=== PATIENT | male | born 1975 | race Caucasian/White ===

== ENCOUNTER 2016-08-05 16:13 | Emergency (ER) ==
[2016-08-05] MEDS ORDERED: HEPARIN IV ONE (16:27)
[2016-08-05] MEDS ORDERED: ASPIRIN PO STA (16:27)
[2016-08-05] MEDS ORDERED: ZOFRAN ONE (16:33)
[2016-08-05] MEDS ORDERED: ZOFRAN IV ONE (16:33)
[2016-08-05] MEDS ORDERED: MORPHINE IV ONE (16:33)
[2016-08-05] MEDS ORDERED: MORPHINE ONE (16:33)
--- NOTE | 2016-08-05 16:33 | PROVIDER DOCUMENTATION ---
HPI-Chest Pain - General Chief Complaint: Heart Alert Stated Complaint: CP Time Seen by Provider: 08/05/16 16:23 Source: patient Allergies/Adverse Reactions: Patient Allergies Allergy/AdvReac Type Severity Reaction Status Date / Time No Known Allergies Allergy Verified 03/27/16 08:10 Home Medications: Home Medication List Medication Instructions Recorded Confirmed Last Taken Type Aspirin [Aspirin EC] 81 mg PO DAILY 03/27/16 03/27/16 03/27/16 06:30 History CAPTOpril [Capoten] 25 mg PO DAILY 03/27/16 03/27/16 03/27/16 06:30 History Gemfibrozil [Lopid] 600 mg PO BID 03/27/16 03/27/16 03/27/16 06:30 History Hydrocodone/Acetaminophen [[place] 1 each PO 2-4XDAY PRN PRN #20 03/27/16 Unknown Rx 10-325 Tablet] tablet Ibuprofen 600 mg PO TID PRN PRN #20 tablet 03/27/16 Unknown Rx Metoprolol [Lopressor] 50 mg PO BID 03/27/16 03/27/16 03/27/16 06:30 History Omeprazole [Prilosec] 40 mg PO DAILY 03/27/16 03/27/16 03/27/16 06:30 History - History of Present Illness-CP Nature of Presenting Problem: patient is a 41 y/o M that presents to the ER with substernal chest pain. patient symptoms began at 1130am with just dizziness, chest pain then came. He reports similar pain to his previous DC , 7 years ago in [place] in which he had cardiac stents. patient reports some nausea. Location: reports: substernal Chest Pain Radiation: reports: no radiation Quality of Pain: reports: tightness Severity in ED: moderate Onset/Duration: abrupt, this morning (1130) Timing: still present, constant Context/Activities at Onset: reports: none Modifying Factors: improves with: nothing. worse with: other medication Associated Symptoms: reports: dizziness, nausea, shortness of breath. denies: back pain, fever/chills, vomiting Nitro Today/Relief: 0.4 mg x 3, provided at home, no relief Aspirin Treatment Today: 325 mg x 1, provided by ED Prior Chest Pain/Cardiac Workup: reports: heart attack Similar Symptoms Previously?: Yes Recently Seen Here or By Another Healthcare Provider: No Review of Systems - Adult - REVIEW OF SYSTEMS - ADULT Constitutional: denies: chills, fever Eyes: reports: no symptoms reported Ears, Nose, Mouth & Throat: reports: no symptoms reported Cardiovascular: reports: chest pain. denies: palpitations, syncope Respiratory: reports: shortness of breath. denies: cough, wheezing Gastrointestinal: reports: nausea. denies: abdominal pain, diarrhea, vomiting Genitourinary: reports: no symptoms reported Musculoskeletal: reports: no symptoms reported Integumentary: reports: no symptoms reported Neurological: reports: dizziness/vertigo. denies: headache/migraines, seizure, syncope Psychiatric: reports: no symptoms reported Endocrine: reports: no symptoms reported Hematologic/Lymphatic: reports: no symptoms reported Allergic/Immunologic: reports: no symptoms reported All Other Systems: Reviewed and Negative Past History - Adult - PAST MEDICAL HISTORY-ADULT Review of Records: reports: Old Records Reviewed, Nursing Assessment Review, Medications Reviewed Cardiovascular: reports: CAD, HTN, hyperlipidemia, DC - PRIOR SURGERIES/PROCEDURES Surgical/Procedure History: reports: cardiac stent - IMMUNIZATION STATUS Childhood Immunizations: See Nurse Assessment Flu Vaccine: See Nurse Assessment - FAMILY HISTORY Family History: reviewed, not pertinent - SOCIAL HISTORY Smoking: cigarettes, less than 1 pack/day Alcohol Use Frequency: occasionally Living Situation: family Physical Exam-General - PHYSICAL EXAM-ADULT Initial Vital Signs Reviewed: Yes - CONSTITUTIONAL General Appearance: alert, mild distress, moderate distress, anxious, other ( ill appearing) - EYES Eyes: PERRL/EOMI, pink conjunctivae - HEAD, EARS, NOSE, MOUTH & THROAT HENMT: normocephalic/atraumatic, moist mucous membranes, normal ENT inspection - NECK Neck: full range of motion, normal inspection. negative: lymphadenopathy - RESPIRATORY Respiratory: lungs clear, normal breath sounds, no respiratory distress, no accessory muscle use - CARDIOVASCULAR Cardiovascular: regular rate, rhythm, no edema, no murmur - GASTROINTESTINAL (ABDOMEN) Abdominal Exam: normal bowel sounds, non tender, soft - MUSCULOSKELETAL Extremity: normal range of motion, normal inspection, no pedal edema - SKIN Integumentary: pallor. negative: diaphoresis - NEUROLOGIC Neurologic: grossly normal, no motor/sensory deficits - PSYCHIATRIC Psych/Mental Status: normal thought content, normal thought process, oriented x 3, anxious Progress - PLAN OF CARE/RESULTS Progress/Plan/Lab Results: No Known Allergies Allergy (Verified 03/27/16 08:10) Aspirin [Aspirin EC] 81 mg PO DAILY 03/27/16 CAPTOpril [Capoten] 25 mg PO DAILY 03/27/16 Gemfibrozil [Lopid] 600 mg PO BID 03/27/16 Hydrocodone/Acetaminophen [[place]ahoma 10-325 Tablet] 1 each PO 2-4XDAY PRN PRN #20 tablet 03/27/16 Ibuprofen 600 mg PO TID PRN PRN #20 tablet 03/27/16 Metoprolol [Lopressor] 50 mg PO BID 03/27/16 Omeprazole [Prilosec] 40 mg PO DAILY 03/27/16 Orders Category Date Time Status Cardiac Monitoring DIRECTED Care 08/05/16 16:27 Active Saline Loc NOW Care 08/05/16 16:27 Active CBC WITH ELECTRONIC DIFF [HEME] Stat Lab 08/05/16 16:27 Uncollected CK PROFILE [SP CHEM] Stat Lab 08/05/16 16:27 Uncollected COMPREHENSIVE METABOLIC PANEL [CHEM] Stat Lab 08/05/16 16:27 Uncollected D-DIMER [CHEM] Stat Lab 08/05/16 16:27 Uncollected MAGNESIUM [CHEM] Stat Lab 08/05/16 16:27 Uncollected PRO B-NATRIURETIC PEPTIDE Stat Lab 08/05/16 16:27 Uncollected PROTIME WITH INR [COAG] Stat Lab 08/05/16 16:27 Uncollected PTT [COAG] Stat Lab 08/05/16 16:27 Uncollected TROPONIN T Stat Lab 08/05/16 16:27 Uncollected Aspirin Med 08/05/16 16:27 Discontinued 325 mg PO STAT STA Heparin Med 08/05/16 16:27 Discontinued 5,000 unit IV NOW ONE EKG [EKG] Stat Ther 08/05/16 16:20 Ordered - EKG 1 Time of EKG reading by physician:: 16:22 EKG Read and Signed by:: Raul Jacobo EKG Interpretation (*Must complete 3 of following elements*): Abnormal Rate: 62 Rhythm: NSR [place]: normal QRS: normal [place] Interval: normal ST Wave: elevated Comments: ACUTE DC - CONSULTS/PCP/HOSPITALIST Notification #1 *Consult/PCP/Hospitalist*: Steven with [facility] at ( accepting) Time Discussed: 16:30 Consult 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) Departure - Departure Time of Disposition Order: 16:31 DIAGNOSIS: STEMI (ST elevation myocardial infarction) Qualifiers: Involved coronary artery: other coronary artery Qualified Code(s): I21.29 - ST elevation (STEMI) myocardial infarction involving other sites Disposition: [place] [id number] Certified Medical Emergency: Emergent Condition: Critical - Critical Care Note Total Time (mins): 35 Critical Care Statement: This patient required my direct personal management to treat or rule out processes, the absence of which, could potentiallly result in sudden, clinically significant life or limb threatening deterioration. Attestation - Scribe Verification/Attestation Scribe:: Jeb De Los Santos Acting as Scribe for:: Raul Jacobo Scribe documention review:: This chart was documented by a scribe and accurately reflects the service the provider performed and the decisions made by the provider. Physician Attestation - Physician Attestation I, the provider, attest to the following statement:: Raul Jacobo Physician documentation Attestation:: This documentation recorded by the scribe accurately reflects the service I personally performed and the decisions made by me.
[2016-08-05 16:47] LABS: MANUAL DIFF NEEDED? NO
[2016-08-05 16:49] VITALS: BP 148/102
[2016-08-05 16:50] LABS: BASO% 0.3 % (0.0-0.8); EOS% 0.7 % (0.0-10.0); HEMOGLOBIN 14.8 g/dL (14.0-18.0); IMM GRAN# 0.02 X1000 (0.0-0.04); IMM GRAN% 0.1 % (0.0-0.5); LYMPH# 1.69 X1000 (1.2-3.4); LYMPH% 11.4 % (20.5-51.1); MCH 33.9 PG (27-31); MCHC 35.2 g/dL (33-37); MCV 96.1 FL (81-99); MONO# 0.84 X1000 (0.11-0.59); MONO% 5.7 % (1.7-9.3); MPV 10.9 FL (7.4-10.4); NEUT% 81.8 % (42.2-75.2); PLT 197 X1000 (130-400); RBC 4.37 XMIL (4.7-6.1)
[2016-08-05 17:01] LABS: INR 1.07; PROTIME 11.3 Seconds (9.2-11.7); PTT 25.9 Seconds (22.0-36.0)
[2016-08-05] MEDS ORDERED: LOPRESSOR ONE (17:10)
[2016-08-05 17:20] LABS: AGAP 16; ALBUMIN 4.4 g/dL (3.5-5.0); ALKALINE PHOSPHATASE 74 U/L (32-122); BUN 17 mg/dL (8-22); CHLORIDE 104 mmol/L (98-107); COSMO 285; GOT 25 U/L (10-34); GPT 31 U/L (10-44); POTASSIUM 3.8 mmol/L (3.5-5.1); SODIUM 141 mmol/L (136-145); TCO2 21 mmol/L (25-35); TOTAL BILIRUBIN 0.69 mg/dL (0.20-1.00); TOTAL PROTEIN 7.1 g/dL (6.3-8.3)
[2016-08-05 17:25] LABS: CK PROFILE 430 U/L (24-204)
[2016-08-05 18:22] LABS: CK INDEX 1.2 (0.0-2.5); CK-MB 5.13 ng/mL (0.0-5.0)
--- NOTE | 2016-08-06 07:43 | EKG Report ---
Test Performed on : 08/05/2016 4:22:12 PM Test Reason : cp Blood Pressure : / mmHG Vent. Rate : 062 BPM Atrial Rate : 062 BPM P-R Int : 196 ms QRS Dur : 108 ms QT Int : 442 ms P-R-T Axes : 029 023 056 degrees QTc Int : 448 ms Normal sinus rhythm. ST elevation, consider inferolateral injury or acute infarct ACUTE [place] / STEMI Abnormal ECG No previous ECGs available Unconfirmed Result
== END 2016-08-05 16:45 | disposition short-term general hospital (02) ==
LOC: ED 16:13
DX: I21.29 ST elevation (STEMI) myocardial infarction involving other sites (principal); R94.31 Abnormal electrocardiogram [ECG] [EKG]; R07.89 Other chest pain; R42 Dizziness and giddiness; R11.0 Nausea; R06.02 Shortness of breath; I25.10 Atherosclerotic heart disease of native coronary artery without angina pectoris; I10 Essential (primary) hypertension; E78.5 Hyperlipidemia, unspecified; I25.2 Old myocardial infarction; F17.210 Nicotine dependence, cigarettes, uncomplicated; Z79.82 Long term (current) use of aspirin; Z79.899 Other long term (current) drug therapy; Z95.5 Presence of coronary angioplasty implant and graft
CPT/HCPCS: 80053; 82550; 82553; 83735; 83880; 84484; 85025; 85379; 85610; 85730; 93005; J1644; J2270; J2405